=== PATIENT | female | born 1965 | race African-American/Black ===

== ENCOUNTER 2016-05-24 20:21 | Emergency (ER) | payer BC ==
[~2016-05-24 20:21] MED LIST: ALPR1TAB2 PO; CITA40TA12 PO; FLUT9.9S NS; HYDR-2762 PO; HYDR-971 PO; SIMV40TA3 PO
[2016-05-24 20:29] VITALS: BP 143/91
[2016-05-24] MEDS ORDERED: ACETAMINOPHEN 500 MG TABLET PO ONE (21:00)
[2016-05-24 21:01] LABS: OBC FLU VALID
[2016-05-24] MEDS ORDERED: AMOX500C PO (21:33)
--- NOTE | 2016-05-24 21:34 | PHYS DOC ---
Past Medical History Past Medical History: No Pertinent History Past Surgical History: Other Additional Past Surgical Histo: wrist and shoulder surgery Alcohol Use: None Drug Use: None Adult General Chief Complaint Chief Complaint: SORE THROAT HPI HPI Patient is a 50 year old female presents emergency department stating that she has generalized body aches and discomfort. She states that she's been having fevers, chills bilateral ear pain and sore throat and a cough. She states that this all started on Wednesday. Patient states that she is taken 1600 mg of ibuprofen on Wednesday with no relief. She states that her fever will go away and come right back. Patient denies obtaining the influenza vaccination. Review of Systems Review of Systems Constitutional: fever Eyes: Denies change in visual acuity, redness, or eye pain [] HENT: nasal congestion and sore throat [] Respiratory: cough denies shortness of breath [] Cardiovascular: No additional information not addressed in HPI [] GI: Denies abdominal pain, nausea, vomiting, bloody stools or diarrhea [] : Denies dysuria or hematuria [] Musculoskeletal: Denies back pain or joint pain [] Integument: Denies rash or skin lesions [] Neurologic: Denies headache, focal weakness or sensory changes [] Current Medications Current Medications Current Medications Medications (Trade) Dose Ordered Sig/Librado Start Time Stop Time Status Last Admin Dose Admin Acetaminophen (Tylenol) 1,000 mg 1X ONCE 05/24/16 21:00 05/24/16 21:01 DC 05/24/16 21:24 1,000 MG Allergies Allergies Allergies Coded Allergies Type Severity Reaction Last Updated Verified No Known Drug Allergies 09/26/15 No Physical Exam Physical Exam Constitutional: Well developed, well nourished, no acute distress, non-toxic appearance. [] HENT: Normocephalic, atraumatic, bilateral external ears normal, oropharynx moist, no oral exudates, nose normal. Bilateral tympanic membranes appear to be normal. Throat with erythematous noted no exudate noted no uvula deviation noted. No cervical adenopathy noted. Eyes: PERRLA, EOMI, conjunctiva normal, no discharge. [] Neck: Normal range of motion, no tenderness, supple, no stridor. [] Cardiovascular:Heart rate regular rhythm, no murmur [] Lungs & Thorax: Bilateral breath sounds clear to auscultation [] Skin: Warm, dry, no erythema, no rash. [] Back: No tenderness Extremities: No tenderness, no cyanosis, no clubbing, ROM intact, no edema. [] Neurologic: Alert and oriented X 3, normal motor function, normal sensory function, no focal deficits noted. [] Psychologic: Affect normal, judgement normal, mood normal. [] Current Patient Data Vital Signs Vital Signs Date Time Temp Pulse Resp B/P Pulse Ox O2 Delivery O2 Flow Rate FiO2 05/24/16 20:29 102.2 104 22 98 Room Air 102.2 Lab Values Laboratory Tests Test 05/24/16 20:35 Influenza Type A Antigen Negative (NEGATIVE) Influenza Type B Antigen Negative (NEGATIVE) EKG EKG [] Radiology/Procedures Radiology/Procedures [] Course & Med Decision Making Course & Med Decision Making Pertinent Labs and Imaging studies reviewed. (See chart for details) Rapid strep was negative, influenza swabs were negative. Patient will be placed on amoxicillin as she does have nasal congestion and cough. Patient was instructed to take ibuprofen every 6 hours alternating with Tylenol every 6 hours. Also recommended patient not to take more than 800 mg of ibuprofen at a time. Also recommended patient to take the amoxicillin as prescribed. Encourage plenty of fluids. Signs and symptoms to return back to emergency department as been provided. Patient be discharged home in stable condition. [] Dragon Disclaimer Dragon Disclaimer This electronic medical record was generated, in whole or in part, using a voice recognition dictation system. Departure Departure Impression: Primary Impression: Upper respiratory infection Disposition: 01 HOME, SELF-CARE Condition: STABLE Referrals: DEMARCO NIETO MD (PCP) Patient Instructions: Upper Respiratory Infection, Adult, [id number] Additional Instructions: Been evaluated for your generalized body aches and discomfort cough and congestion as well as fever. You've been provided with Tylenol here in the emergency department. Your influenza swabs and strep swab was negative. Tylenol every 6 hours, ibuprofen every 6 hours alternating. Drink plenty of fluids. Medication as prescribed. Follow-up to primary care physician in the next 3-5 days. Return back to emergency prior signs and symptoms of become worse. Scripts Amoxicillin 500 Mg Capsule1 Cap PO BID #20 CAP Prov:TAN PHILLIPS APRN 05/24/16 TAN PHILLIPS APRN May 24, 2016 21:34
[2016-05-25 07:20] LABS: NEGATIVE OBC STREP NEG; POSITIVE OBC STREP POS
== END 2016-05-24 22:37 | disposition home or self-care (01) ==
LOC: ER 20:21
DX: J06.9 Acute upper respiratory infection, unspecified (principal)
CPT/HCPCS: 87070; 87804; 87880; 99284

== ENCOUNTER → 2017-01-13 | Day surgery (SDC) | payer BC ==
[~2017-01-13] MED LIST changes: +AMOX500C PO; +ATOR40TA59 PO; +HYDROmorphone 2 MG/ML VIAL IV PRN; +IV RINGERS,LACTATED 1000ML 1,000 ML IV SCH; +LIDOCAINE 1% PF 2 ML VIAL. ID PRN; +LIDOCAINE 2% PF Vial for OR 5 ML VIAL. ONE; +MORPHINE SULFATE 2 MG/ML DISP.SYRIN. IV PRN; +PROCHLORPERAZINE 10 MG/2 ML VIAL. IV PRN; +PROPOFOL 20 ML IV ONE; +fentaNYL PF VIAL 100 MCG/2 ML VIAL IV PRN
[2017-01-13 08:21] VITALS: BP 129/88
== END | disposition home or self-care (01) ==
LOC: ENDOS 06:24
PROVIDERS: ATTEND Internal Medicine Gastroenterology
DX: K64.0 First degree hemorrhoids (principal); K57.30 Diverticulosis of large intestine without perforation or abscess without bleeding; E78.00 Pure hypercholesterolemia, unspecified; J44.9 Chronic obstructive pulmonary disease, unspecified; F41.9 Anxiety disorder, unspecified; F32.9 Major depressive disorder, single episode, unspecified; F17.200 Nicotine dependence, unspecified, uncomplicated; Z87.39 Personal history of other diseases of the musculoskeletal system and connective tissue; Z72.89 Other problems related to lifestyle
CPT/HCPCS: 45378; J2704; J2001

== ENCOUNTER 2018-09-29 06:02 | Observation (INO) | payer BC ==
[2018-09-29] VITALS (8 sets, daily range): BP systolic 104–125; BP diastolic 67–80
[~2018-09-29] VITALS: Ht 167.6 cm; Wt 87.1 kg
[~2018-09-29 06:02] MED LIST changes: +BUPIVACAINE-EPI 0.25%-1:200000 MPF 30 ML VIAL. INJ ONE; -HYDR-2762 PO; +HYDR-2765 PO; +HYDR-3164 PO; -HYDR-971 PO; -HYDROmorphone 2 MG/ML VIAL IV PRN; +IBUP-1060 PO; -IV RINGERS,LACTATED 1000ML 1,000 ML IV SCH; -LIDOCAINE 1% PF 2 ML VIAL. ID PRN; -LIDOCAINE 2% PF Vial for OR 5 ML VIAL. ONE; -MORPHINE SULFATE 2 MG/ML DISP.SYRIN. IV PRN; -PROCHLORPERAZINE 10 MG/2 ML VIAL. IV PRN; -PROPOFOL 20 ML IV ONE; -fentaNYL PF VIAL 100 MCG/2 ML VIAL IV PRN
[2018-09-29] MEDS ORDERED: ONDANSETRON PF 4 MG/2 ML VIAL. ONE (06:43)
[2018-09-29] MEDS ORDERED: PROPOFOL 20 ML IV ONE (06:43)
[2018-09-29] MEDS ORDERED: ROCURONIUM 50 MG/5 ML VIAL. ONE (06:43)
[2018-09-29] MEDS ORDERED: LIDOCAINE 2% PF 5 ML VIAL. ONE (06:43)
[2018-09-29] MEDS ORDERED: DEXAMETHASONE SOD PHOS 4 MG/ML VIAL ONE ×2 (06:43→07:44)
[2018-09-29] MEDS: IV RINGERS,LACTATED 1000ML 1,000 ML IV SCH ×2 (06:48→10:09)
[2018-09-29 06:59] LABS: BASO # 0.1 x10^3/uL (0.0-0.2); BASO % 1 % (0-3); EOS # 0.4 x10^3/uL (0.0-0.7); EOS % 5 % (0-3); HEMOGLOBIN 12.8 g/dL (12.0-15.5); LYMPH # 3.2 x10^3/uL (1.0-4.8); LYMPH % 41 % (24-48); MEAN CORPUSCULAR HEMOGLOBIN 32 pg (25-35); MEAN CORPUSCULAR HGB CONC 34 g/dL (31-37); MEAN CORPUSCULAR VOLUME 94 fL (79-100); MONO # 0.6 x10^3/uL (0.0-1.1); MONO % 8 % (0-9); NEUT # 3.6 x10^3/uL (1.8-7.7); NEUT % 46 % (31-73); PLATELET COUNT 266 x10^3/uL (140-400); RED BLOOD COUNT 4.03 x10^6/uL (3.50-5.40); RED CELL DISTRIBUTION WIDTH 12.7 % (11.5-14.5); WHITE BLOOD COUNT 7.9 x10^3/uL (4.0-11.0)
[2018-09-29] MEDS ORDERED: PROCHLORPERAZINE 10 MG/2 ML VIAL. IV PRN ×2 (07:00→09:45)
[2018-09-29] MEDS ORDERED: ceFAZolin 2GM PREMIX 2 GM/50 ML BAG IV ONE (07:00)
[2018-09-29] MEDS ORDERED: fentaNYL PF VIAL 100 MCG/2 ML VIAL IV PRN (07:00)
[2018-09-29] MEDS ORDERED: HYDROmorphone 2 MG/ML VIAL IV PRN (07:00)
[2018-09-29] MEDS ORDERED: MORPHINE SULFATE 2 MG/ML VIAL. IV PRN (07:00)
--- NOTE | 2018-09-29 07:02 | EKG ---
[facility] [address] [place] [address] Test Date: 2018-09-29 Test Time: 07:03:47 Pat Name: CHECO COLON Department: Room: Gender: F Counter Weigher: : 1965 Requested By: AUDRA LEO Order Number: [id number] Reading MD: Measurements Intervals [place] Rate: 69 P: 49 NM: 166 QRS: 46 QRSD: 74 T: 44 QT: 398 QTc: 428 Interpretive Statements SINUS RHYTHM NO SPECIFIC ECG ABNORMALITIES RI6.01 No previous ECG available for comparison
[2018-09-29] MEDS ORDERED: SURGICEL HEMOSTAT 4X8 EACH. ONE (07:38)
[2018-09-29] MEDS ORDERED: ESTROGENS, CONJ VAGINAL CREAM 30GM TUBE. ONE (07:38)
[2018-09-29] MEDS ORDERED: INDIGOTINDISULFONATE SODIUM 40 MG/5 ML AMPUL. ONE (07:39)
[2018-09-29] MEDS ORDERED: LIDOCAINE 1%/EPI 1:100,000 20 ML VIAL. ONE (07:39)
[2018-09-29] MEDS ORDERED: MIDAZOLAM HCL/PF 2 MG/2 ML VIAL. ONE (07:44)
[2018-09-29] MEDS ORDERED: fentaNYL PF VIAL 100 MCG/2 ML VIAL ONE (07:45)
[2018-09-29] MEDS ORDERED: SEVOFLURANE 61 TO 120 MINUTES. IH ONE (09:00)
[2018-09-29] MEDS ORDERED: NEOSTIGMINE METHYLSULFATE 5 MG/5 ML SYRINGE. ONE (09:19)
[2018-09-29] MEDS ORDERED: GLYCOPYRROLATE 1 MG/5 ML VIAL. ONE (09:19)
[2018-09-29] MEDS ORDERED: KETOROLAC 30 MG/ML INJ FOR OR. INJ ONE (09:27)
--- NOTE | 2018-09-29 09:31 | PDOC ---
BRIEF OPERATIVE NOTE Date: Sep 29, 2018 Pre-Op Diagnosis Fibroids Post-Op Diagnosis Same Procedure Performed LAVH & BSO Surgeon Dr. Lacy Warp Bleaching Vat Tender Recreational Leader: Aaliyah Anesthesia Type: General Blood Loss 50 ml Specimens Obtained uterus, cervix, richi. fallopian tubes and ovaries Findings enlarged fibroid uterus; nml fallopian tubes and ovaries richi. Complications none Operative Note see dictation AUDRA LACY Jr, MD Sep 29, 2018 09:31
[2018-09-29] MEDS ORDERED: KETOROLAC 30 MG/ML VIAL. IV PRN (09:45)
[2018-09-29] MEDS ORDERED: DEXTROSE 50% 25 GM / 50ML DISP.SYRIN. IV PRN (09:45)
[2018-09-29] MEDS ORDERED: 0.9 % SODIUM CHLORIDE 10 ML DISP.SYRIN. IV PRN (09:45)
[2018-09-29] MEDS ORDERED: ZOLPIDEM 5 MG TABLET. PO PRN (09:45)
[2018-09-29] MEDS ORDERED: CALCIUM CARBONATE 500 MG TAB.CHEW PO PRN (09:45)
[2018-09-29] MEDS ORDERED: diphenhydrAMINE HCL 25 MG CAPSULE PO PRN (09:45)
[2018-09-29] MEDS ORDERED: SIMETHICONE 80 MG TAB.CHEW PO PRN (09:45)
[2018-09-29] MEDS ORDERED: diphenhydrAMINE 50 MG/ML VIAL IV PRN (09:45)
[2018-09-29] MEDS ORDERED: ONDANSETRON PF 4 MG/2 ML VIAL. IV PRN (09:45)
[2018-09-29] MEDS: fentaNYL PF VIAL 100 MCG/2 ML VIAL IV PRN ×2 (10:40→11:13)
--- NOTE | 2018-09-29 11:00 | OP ---
DATE OF SURGERY: PREOPERATIVE DIAGNOSIS: Fibroids. POSTOPERATIVE DIAGNOSIS: Fibroids. PROCEDURE: Laparoscopically assisted vaginal hysterectomy and bilateral salpingo-oophorectomy. SURGEON: Audra Lacy MD SUPERVISOR SHEARING: ____. ANESTHESIA: GETA. ESTIMATED BLOOD LOSS: 50 mL. COMPLICATIONS: None. FINDINGS: Enlarged fibroid uterus, normal fallopian tubes and ovaries bilaterally. SUMMARY: This is a 53-year-old female, who had enlarging fibroid uterus, who was counseled on risks, benefits, and expectations of laparoscopically assisted vaginal hysterectomy and bilateral salpingo-oophorectomy. She voiced clear understanding to proceed. DESCRIPTION OF PROCEDURE: The patient was taken to surgery suite and placed in dorsal lithotomy position. She was prepped with Betadine solution for vaginal prep and ChloraPrep for abdominal prep. After adequate anesthesia, bivalve speculum was placed vaginally. Anterior lip of the cervix was grasped with single-tooth tenaculum. The Valtchev uterine manipulator was then placed. The bivalve speculum was removed. Attention was placed on the abdomen. A small transverse skin incision was made just below the umbilicus with a scalpel. The Veress needle was then placed. The abdomen was allowed to insufflate up to 1.5 liters CO2 gas. The Veress needle was then removed. A 5 mm trocar was placed. The scope was positioned. Uterus was enlarged with multiple fibroids. The fallopian tubes and ovaries appeared normal bilaterally. Two additional incisions were made in the left lower quadrant with a scalpel in which 5 mm trocars were placed. With aid of graspers and EnSeal device, the right round ligament was coagulated and dissected. The right infundibulopelvic ligament was coagulated and dissected down to the right broad ligament. Bladder flap was partially created with blunt dissection along with the EnSeal device. Same process took place with left adnexa. Suction irrigation was utilized to verify good hemostasis at this point. We then proceeded vaginally. The weighted speculum and curved [place] were placed vaginally. The single-tooth tenaculum and Valtchev uterine manipulator were then removed. Justin clamps were placed on the anterior and posterior lip of the cervix. The cervix was then injected with 1% lidocaine with epinephrine in circumferential manner. Once the cervix was then circumscribed with Bovie cautery, the vaginal wall mucosa was dissected away from the lower uterine segment using a moist Ray-Kesha and blunt dissection. The parametrial tissue and cardinal ligaments were clamped bilaterally with curved Evie clamps, cut and suture ligated with 2-0 Vicryl suture. Posterior cul-de-sac was entered sharply with curved High scissors. The long weighted speculum was then placed. Uterosacral ligaments were clamped bilaterally, cut, and suture ligated. The uterus was then retroverted and the fibroid was then cored out from the fundus of the uterus. One additional pedicle was taken just adjacent to the lower uterine segment bilaterally, which was clamped, cut, and suture ligated. The remainder part of the uterus, bilateral fallopian tubes and ovaries, and cervix were then removed. The pedicles were visualized and hemostatic. A modified Morales culdoplasty was performed incorporating the uterosacral ligaments bilaterally. The remainder of the vaginal cuff was reapproximated using 2-0 Vicryl suture in a [id number] manner. Premarin soaked vaginal packing was placed. Attention was once again placed on abdomen. The abdomen was allowed to insufflate up to 1.5 liters of gas once again. The scope was positioned. The posterior cul-de-sac was visualized and hemostatic. All pedicles were hemostatic. Suction irrigation was utilized to verify this. A small amount of normal saline was left in the posterior cul-de-sac. The trocars were then removed under direct visualization. The abdomen was allowed to deflate as much as possible along with mechanical manipulation. The three skin incisions were reapproximated using 4-0 Vicryl suture in subcuticular manner. Marcaine 0.25% with epinephrine was injected at each incision site. The patient tolerated the procedure well and was taken to recovery room in stable condition. Sponge and needle count correct x3. AUDRA LACY MD DR: MAUREEN/rosanne JOB#: [id number] / [id number]
[2018-09-29] MEDS ORDERED: PHENOL ORAL SPRAY 177ML BOTTLE. PO PRN (12:00)
[2018-09-29] MEDS: oxyCODONE/APAP 5/325 1 TAB TABLET PO PRN ×3 (12:41→20:23)
[2018-09-29] MEDS: GABAPENTIN 300 MG CAPSULE. PO SCH (16:37)
[2018-09-29] MEDS: DOCUSATE SODIUM 100 MG CAPSULE. PO PRN (21:40)
[2018-09-30] MEDS: oxyCODONE/APAP 5/325 1 TAB TABLET PO PRN ×3 (00:21→10:13)
[2018-09-30] MEDS: GABAPENTIN 300 MG CAPSULE. PO SCH ×2 (00:22→09:01)
[2018-09-30 06:42] VITALS: BP 133/66
[2018-09-30 07:16] LABS: BASO # 0.1 x10^3/uL (0.0-0.2); BASO % 0 % (0-3); EOS # 0.1 x10^3/uL (0.0-0.7); EOS % 0 % (0-3); HEMATOCRIT 33.5 % (36.0-47.0); HEMOGLOBIN 11.4 g/dL (12.0-15.5); LYMPH # 3.2 x10^3/uL (1.0-4.8); LYMPH % 19 % (24-48); MEAN CORPUSCULAR HEMOGLOBIN 32 pg (25-35); MEAN CORPUSCULAR HGB CONC 34 g/dL (31-37); MEAN CORPUSCULAR VOLUME 93 fL (79-100); MONO # 1.3 x10^3/uL (0.0-1.1); MONO % 8 % (0-9); NEUT % 72 % (31-73); PLATELET COUNT 254 x10^3/uL (140-400); RED CELL DISTRIBUTION WIDTH 12.6 % (11.5-14.5); WHITE BLOOD COUNT 16.6 x10^3/uL (4.0-11.0)
[2018-09-30] MEDS ORDERED: MAGNESIUM HYDROXIDE 2,400 MG/30 ML ORAL.SUSP. PO PRN (08:00)
[2018-09-30] MEDS ORDERED: DOCUSATE SODIUM 100 MG CAPSULE. PO PRN (08:00)
--- NOTE | 2018-09-30 08:43 | PDOC ---
SURGICAL PROGRESS NOTE Subjective Pt. feeling well. Pain controlled. She is ambulating, voiding and tolerating regular diet. Vital Signs Vital Signs Date Time Temp Pulse Resp B/P (MAP) Pulse Ox O2 Delivery O2 Flow Rate FiO2 09/30/18 06:42 98.0 70 18 133/66 (88) 98 Room Air 98.0 09/30/18 06:36 2.0 I&O Intake and Output 09/30/18 06:59 Intake Total 2550 ml Output Total 1610 ml Balance 940 ml Intake Oral 1100 ml IV Total 1450 ml Output Urine Total 1560 ml Estimated Blood Loss 50 ml # Voids 1 PATIENT HAS A JESSICA: No General: Alert, Oriented X3, Cooperative HEENT: Atraumatic Lungs: Clear to auscultation Heart: Regular rate Abdomen: Normal bowel sounds, Soft, No tenderness, No masses Psych/Mental Status: Mental status NL Labs Laboratory Tests Test 09/29/18 06:22 09/30/18 06:50 White Blood Count 7.9 x10^3/uL (4.0-11.0) 16.6 x10^3/uL (4.0-11.0) Red Blood Count 4.03 x10^6/uL (3.50-5.40) 3.60 x10^6/uL (3.50-5.40) Hemoglobin 12.8 g/dL (12.0-15.5) 11.4 g/dL (12.0-15.5) Hematocrit 38.0 % (36.0-47.0) 33.5 % (36.0-47.0) Mean Corpuscular Volume 94 fL (79-100) 93 fL (79-100) Mean Corpuscular Hemoglobin 32 pg (25-35) 32 pg (25-35) Mean Corpuscular Hemoglobin Concent 34 g/dL (31-37) 34 g/dL (31-37) Red Cell Distribution Width 12.7 % (11.5-14.5) 12.6 % (11.5-14.5) Platelet Count 266 x10^3/uL (140-400) 254 x10^3/uL (140-400) Neutrophils (%) (Auto) 46 % (31-73) 72 % (31-73) Lymphocytes (%) (Auto) 41 % (24-48) 19 % (24-48) Monocytes (%) (Auto) 8 % (0-9) 8 % (0-9) Eosinophils (%) (Auto) 5 % (0-3) 0 % (0-3) Basophils (%) (Auto) 1 % (0-3) 0 % (0-3) Neutrophils # (Auto) 3.6 x10^3/uL (1.8-7.7) 12.0 x10^3/uL (1.8-7.7) Lymphocytes # (Auto) 3.2 x10^3/uL (1.0-4.8) 3.2 x10^3/uL (1.0-4.8) Monocytes # (Auto) 0.6 x10^3/uL (0.0-1.1) 1.3 x10^3/uL (0.0-1.1) Eosinophils # (Auto) 0.4 x10^3/uL (0.0-0.7) 0.1 x10^3/uL (0.0-0.7) Basophils # (Auto) 0.1 x10^3/uL (0.0-0.2) 0.1 x10^3/uL (0.0-0.2) Laboratory Tests Test 09/30/18 06:50 White Blood Count 16.6 x10^3/uL (4.0-11.0) Red Blood Count 3.60 x10^6/uL (3.50-5.40) Hemoglobin 11.4 g/dL (12.0-15.5) Hematocrit 33.5 % (36.0-47.0) Mean Corpuscular Volume 93 fL (79-100) Mean Corpuscular Hemoglobin 32 pg (25-35) Mean Corpuscular Hemoglobin Concent 34 g/dL (31-37) Red Cell Distribution Width 12.6 % (11.5-14.5) Platelet Count 254 x10^3/uL (140-400) Neutrophils (%) (Auto) 72 % (31-73) Lymphocytes (%) (Auto) 19 % (24-48) Monocytes (%) (Auto) 8 % (0-9) Eosinophils (%) (Auto) 0 % (0-3) Basophils (%) (Auto) 0 % (0-3) Neutrophils # (Auto) 12.0 x10^3/uL (1.8-7.7) Lymphocytes # (Auto) 3.2 x10^3/uL (1.0-4.8) Monocytes # (Auto) 1.3 x10^3/uL (0.0-1.1) Eosinophils # (Auto) 0.1 x10^3/uL (0.0-0.7) Basophils # (Auto) 0.1 x10^3/uL (0.0-0.2) Assessment/Plan A: POD#1 s/p LAVH & BSO P: D/c home. AUDRA LEO Jr, MD Sep 30, 2018 08:43
[2018-09-30] MEDS ORDERED: DOCU-109 PO (08:45)
[2018-09-30] MEDS ORDERED: IBUP-1060 PO (08:45)
[2018-09-30] MEDS ORDERED: OXYC1TAB15 PO (08:45)
--- NOTE | 2018-09-30 08:45 | DISCH ---
DISCHARGE INSTRUCTIONS Condition on Discharge Condition on Discharge: Stable Activity After Discharge Activity Instructions for Disc: Activity as tolerated Lifting Instructions after Dis: No heavy lifting Driving Instructions after Dis: Do not drive today Diet after Discharge Diet after Discharge: Regular Contacting the DRMorenita after DC Call your doctor for: Concerns you may have Follow-Up Follow up with: Dr. Lacy in 2 wks AUDRA LACY Jr, MD Sep 30, 2018 08:45
[2018-09-30] MEDS: DOCUSATE SODIUM 100 MG CAPSULE. PO PRN (09:01)
[2018-09-30 10:00] VITALS: BP 128/68
--- NOTE | 2018-10-03 16:06 | PATHOLOGY ---
[facility] Accession Number: [id number] . 01 Material submitted: . uterus - CERVIX, UTERUS, BILATERAL FALLOPIAN TUBES AND OVARIES . 01 Clinical history: . Fibroids . 02 Diagnosis: Uterus and attached bilateral fallopian tubes and ovaries and separate detached segment of smooth muscle, laparoscopic assisted vaginal hysterectomy with bilateral salpingo-oophorectomy: - Leiomyomas, uterine corpus, submucosal/intramural/subserosal, multiple, the largest of which is detached from the uterus and measures 6.1 cm in greatest dimension (uterine weight 250 grams). - Mild chronic cervicitis, focal. - Inactive/atrophic pattern endometrium. - Adenomyosis, uterine corpus, sub-basal, focal. - Left paratubal cyst. - Bilateral ovaries showing no significant pathologic abnormalities. (JPM:parish; 10/03/2018) QMS/10/03/2018 . 02 Comment: There is no evidence of malignancy. . 02 Electronically signed: . Alec Diaz MD, Pathologist NPI- [id number] . 01 Gross description: . The specimen is received in formalin labeled "Nicole Gavin, cervix, uterus, bilateral fallopian tubes and ovaries". Received is a 185 g, 10.6 x 7.7 x 6.0 cm (upon reconstruction) uterus with attached cervix and attached adnexa, weighing 6 g each. The specimen is received in two pieces (with the fundus aspect detached from the lower aspect of the uterus). The uterine serosa is pink-guidry and smooth in appearance. The 1.0 cm slit-like cervical os is surrounded by pale guidry to pink-guidry, smooth ectocervical mucosa. The uterus is oriented using the peritoneal reflection and the anterior paracervical margin is inked black. The uterus is opened laterally to reveal a pale guidry endocervical canal measuring 2.4 cm in length. The endometrial cavity is triangular measuring 5.9 cm in length by 2.0 cm in width (upon reconstruction). The endometrium is pale guidry, glistening in appearance and measures 0.1 cm in thickness. Serial sectioning reveals a guidry-pink, trabeculated myometrium measuring up to 2.2 cm in thickness displaying multiple submucosal, intramural, and subserosal fibroids ranging in size from 1.0 to 3.8 cm in maximum dimensions. . The left adnexa consists of a fimbriated fallopian tube measuring 5.5 cm in length by up to 0.5 cm in diameter attached to a 2.1 x 1.8 x 1.2 cm ovary. The fallopian tube displays an attached paratubal cyst measuring 1.0 cm filled with clear fluid. Sectioning through the fallopian tube reveals a pinpoint to patent lumen and the fallopian tube appears grossly unremarkable. Sectioning through the ovary reveals pale guidry, normal ovarian stroma. . The right adnexa consists of a fimbriated fallopian tube measuring 2.8 cm in length by up to 0.5 cm in diameter attached to a 1.8 x 1.7 x 1.2 cm ovary. Sectioning through the fallopian tube reveals a pinpoint lumen and the fallopian tube appears grossly unremarkable. Sectioning through the ovary reveals pale guidry, normal ovarian. . Also received in the specimen container is a 65 g fibroid measuring6.1 x 5.5 x 3.8 cm in greatest dimensions. Sectioning reveals guidry, whorled cut surfaces with no gross evidence of degeneration or necrosis. The specimen is submitted representatively as follows: . A1 12:00 cervix A2 6:00 cervix A3 anterior endomyometrium A4 posterior endomyometrium A5-A6 collections representative sections of submucosal, intramural, and subserosal fibroids A7 left adnexa A8 right adnexa A9 collections representative sections of separate submitted fibroid. (CAA; 09/29/2018) QAC/QAC . 02 Pathologist provided ICD-10: D25.1, D25.2, N72, N85.8, N80.0, N83.8 . 02 CPT . 965003 Specimen Comment: A courtesy copy of this report has been sent to Specimen Comment: [phone], . Specimen Comment: Report sent to / DR NIETO Performed at: 01 [facility] [address], [place], [place] [id number] MD Brannon Adair MD Phone: [phone] Performed at: 02 [facility] [address] [place], [place] [id number] MD Alec Diaz MD Phone: [phone]
== END 2018-09-30 10:30 | disposition home or self-care (01) ==
LOC: SURG 06:02 → 3 NORTH 09:31
PROVIDERS: ADMIT Obstetrics & Gynecology; ATTEND Obstetrics & Gynecology
DX: D25.9 Leiomyoma of uterus, unspecified (principal); E78.5 Hyperlipidemia, unspecified; Z98.890 Other specified postprocedural states
CPT/HCPCS: 36415; 58552; 85025; 86850; 86900; 86901; 93005; A7015; G0378; G0379; J0696; J0780; J1100; J1885; J2001; J2250; J2704; J2710; J3010; J3490; J7030; J7120; 88307; J2405